=== PATIENT | female | born 1985 | race Caucasian/White ===

== ENCOUNTER → 2019-04-27 17:09 | Outpatient (CLI) | payer OTHER, SELFPAY ==
[2019-05-04 13:14] LABS: HPV APTIMA, High Risk Negative (Negative)
== END ==
PROVIDERS: Referring Provider Obstetrics & Gynecology; Visit Provider Obstetrics & Gynecology
DX: Z12.4 Encounter for screening for malignant neoplasm of cervix (principal)
CPT/HCPCS: 87624; 88175; G0145

== ENCOUNTER 2024-04-21 12:00 | Emergency (ER) | payer OTHER, SELFPAY ==
[2024-04-21 12:01] VITALS: BP 128/83; PULSE 72; RESP 16; TEMP 36.6; O2SAT 100; BMI 27.1
--- NOTE | 2024-04-21 12:13 | VDLE_ITS ---
Reason For Study: Left leg pain Procedure LEFT This is a venous duplex using B-mode, color CFV is compressible, spontaneous, phasic, flow and spectral Doppler. competent, and demonstrates normal Exam performed portable in ED. augmentation. A preliminary report was called and/or faxed FV is compressible, spontaneous, phasic, to Katina LUCIO. competent and demonstrates normal augmentation. POP V is compressible, spontaneous, phasic, competent and demonstrates normal augmentation. T/P Trunk is compressible. PTV is compressible. LT PerV is compressible. Acute superficial vein thrombosis is noted in the left GSV distal thigh. It is dilated and NONCOMPRESSIBLE. Remainder of GSV is comressible. VL/Venous Duplex US, Unilateral Interpretation Summary Deep veins of the left lower extremity are patent and compressible segmentally. There is no evidence of left lower extremity deep vein thrombosis. Valvular competence appears intac t within the proximal deep venous system on the left . Acute superficial thrombophlebitis is noted in the left great saphenous vein in the distal thigh. The remainder of the left great saphenous v ein is patent and compressible. Ordering Physician: Song Schultz Performed By: Diana Mendoza RVT
--- NOTE | 2024-04-21 12:14 | EX.ED.DYSGE1 ---
HPI <DAYANA Muro - Last Filed: 04/21/24 13:34> History of Present Illness Chief Complaint: Lower Extremity Injury Narrative Narrative: 39-year-old female with history of breast cancer who received 1 treatment of chemotherapy on April 10, 2024, presents to the [facility] part with left thigh pain that has been ongoing for 24 hours. Patient is concerned of the blood clot secondary to being on chemotherapy. Patient denies any chest pain or shortness of breath. Patient denies any car rides, recent surgeries. Last chemotherapy was April 10. [facility] <DAYANA Muro - Last Filed: 04/21/24 13:34> [facility] Medical History (Updated 04/21/24 @ 13:34 by DAYANA Muro) Breast cancer Home Medications ?Medication ?Instructions ?Recorded ?Last Taken ?Type vits no.130-ferrous fum 1 ea PO DAILY 05/10/17 05/14/17 History 27 mg iron-folic acid 800 mcg tablet ( Vitamin) ibuprofen 800 mg tablet 800 mg PO TID PRN PRN pain or 05/18/17 Unknown Rx cramping #30 tabs oxycodone 5 mg tablet 5 - 10 mg (1 - 2 x 5 mg) PO Q4H 05/18/17 Unknown Rx PRN PRN Mod-Severe Pain (4-10/10) #28 tabs Allergy/AdvReac Type Severity Reaction Status Date / Time No Known Allergies Allergy Verified 04/21/24 12:18 Social History Smoking Status: Never smoker ROS <DAYANA Muro - Last Filed: 04/21/24 13:34> ROS ED ROS Narrative Constitutional: Negative for fever, chills, weight loss, weakness Eyes: Negative for vision loss, vision change, double vision ENT: Negative for any sore throat, ear pain, congestion Cardiovascular: Negative for any chest pain, tightness, palpitations Respiratory: Negative for any cough, sputum production, hemoptysis, dyspnea, dyspnea on exertion, orthopnea Gastrointestinal: Negative for any abdominal pain, nausea, vomiting, diarrhea, constipation, blood in stool, blood in vomit : Negative for any urinary frequency, dysuria, retention, blood in urine Muscle skeletal: Negative for any neck pain, back pain. Pain to the left medial thigh Neurological: Negative for any headache, syncope, dizziness Skin: Negative for any rashes, itching, abrasions, lacerations Psychiatric: Negative for any depression, anxiety, stress, suicidal ideation, homicidal ideation Hematologic: Negative for any excessive bruising, easy bleeding EXAM <DAYANA Muro - Last Filed: 04/21/24 13:34> Physical Exam Narrative Exam Narrative: Vital signs reviewed. HEET: Head normocephalic atraumatic, TMs clear bilaterally. Posterior pharynx is clear, moist mucous membranes. Nares clear bilaterally. Neck: Supple with no lymphadenopathy or tenderness. No signs of meningismus. Cardiac: Regular rate and rhythm no murmurs gallops or rubs, equal peripheral pulses bilaterally. Respiratory: Lungs clear to auscultation bilaterally. No chest tenderness. Abdomen: Soft, nontender, nondistended. No abdominal bruit or pulsatile masses. No hepatosplenomegaly Extremities: No lower leg edema. +2 pedal pulses bilaterally. Patient does have an area of pain to the left medial thigh. This is painful to the touch. There is a slight lump. There is no evidence of cellulitis or abscess. Neuro: Cranial nerves II through XII intact, no focal neurological deficits. Skin: Clean dry and intact with no rash, purpura, petechiae, vesicles or pustules. Backs/flank: No CVA tenderness, no midline spinal tenderness, no deformity. Psych: Normal mood and affect. No SI, HI or acute psychosis. Const Vital Signs: 04/21/24 12:01 04/21/24 14:10 Temperature 97.9 F 98 F Temperature Source Temporal Pulse Rate 72 74 Respiratory Rate 16 16 Blood Pressure 128/83 H 138/68 H Blood Pressure Mean 98 91 Pulse Ox 100 97 Oxygen Delivery Method Room Air Positive well nourished and well developed General Appearance ED: well developed <Shayan Garland MD - Last Filed: 04/21/24 16:46> Physical Exam Const Vital Signs: 04/21/24 12:01 04/21/24 14:10 Temperature 97.9 F 98 F Temperature Source Temporal Pulse Rate 72 74 Respiratory Rate 16 16 Blood Pressure 128/83 H 138/68 H Blood Pressure Mean 98 91 Pulse Ox 100 97 Oxygen Delivery Method Room Air MDM <DAYANA Muro - Last Filed: 04/21/24 13:34> MDM Treatment and Re-Evaluation :: Differential diagnosis includes however is not limited to: Muscle strain, DVT, superficial thrombophlebitis, abscess Patient appears generally well, vital signs are stable, patient is nontoxic-appearing. Presenting to the emergency department with complaints of pain to the left medial thigh, patient is on chemotherapy for breast cancer. Patient will receive a venous duplex of the left lower extremity. All radiologic examinations were read, reviewed by the emergency department attending. From these reads, a plan of care will be put in place. Patient's venous duplex noted acute superficial vein thrombosis is noted in the left GSV, distal thigh. Is dilated and noncompressible. Remainder of the GSV is compressible. Secondary this to being superficial thrombus, patient will follow-up with the oncologist see if she can take aspirin. She will be given Dr. Marinelli for follow-up. She will use warm compresses. Instructed return for any worsening symptoms. <Shayan Garland MD - Last Filed: 04/21/24 16:46> [facility] Narrative Medical decision making narrative: Dr. Garland: I have personally performed a face to face assessment of the patient and have reviewed the JAVAD Note. I performed a substantive portion of the visit including all aspects of the following. My montaño findings include: History is left inner thigh swollen, tender to touch, red. Concern for DVT. No chest pain or shortness of breath. Exam is afebrile. Vital signs noted. Mild tenderness palpation left distal inner thigh with mild erythema. Medical Decision Making: Concern is for DVT versus superficial thrombophlebitis. DVT study obtained and preliminary report reviewed. There is superficial thrombosis near the greater saphenous vein, but no evidence of DVT. I do not feel that any laboratory work or other imaging is indicated. She was discharged home in stable condition. Other additions or changes: Vascular surgery as an outpatient. Can take aspirin, but will check with oncology if she is able to take salicylates. Declined stronger pain medications. History & Record Review Discussion w/independent historian: Patient and Family Discharge Plan Triage Chief Complaint: Lower Extremity Injury ED Midlevel Provider: Song Schultz ED Provider: Shayan Garland Dx/Rx/DC Orders Clinical Impression: Acute superficial venous thrombosis of left lower extremity Instructions: Low-Salt Choices, ED Thrombophlebitis, Superficial Prescriptions: No Action vit no.[id number] [ Vitamin] 1 EACH tablet 1 ea PO DAILY oxycodone 5 MG tablet 5 - 10 mg PO Q4H PRN PRN (Reason: Mod-Severe Pain (4-1010)) Qty: 28 0RF ibuprofen 800 MG tablet 800 mg PO TID PRN PRN (Reason: pain or cramping) Qty: 30 1RF Primary Care Provider: Care Physician,No Primary Referrals: Jasvir Marinelli MD [Med Staff - Active Staff] - Care Physician,No Primary [Primary Care Provider] - Activity Restrictions/Additional Instructions: Please use a warm compress. Speak with your oncologist regarding aspirin. Return for any worsening symptoms. Print Language: Turkmen Disposition Disposition: Home, Self Care Discharge Date/Time: 04/21/24 14:10
[2024-04-21 14:10] VITALS: BP 138/68; PULSE 74; RESP 16; TEMP 36.6; O2SAT 97
== END 2024-04-21 14:10 | disposition home or self-care (01) ==
PROVIDERS: Emergency Provider Emergency Medicine; Visit Provider Emergency Medicine
DX: I82.812 Embolism and thrombosis of superficial veins of left lower extremity (principal)
CPT/HCPCS: 93971; 99282

== ENCOUNTER 2024-05-07 12:42 | Outpatient (CLI) | payer OTHER, SELFPAY ==
[2024-05-07 13:00] VITALS: BP 108/68; PULSE 75; RESP 16; TEMP 36.6; O2SAT 97; BMI 26.9
[2024-05-07] MEDS: 0.9% Normal Saline (1000mL) 1,000 ML 999 ML IV (13:09)
[2024-05-07 14:22] VITALS: BP 108/56; PULSE 77; RESP 16; TEMP 36.9; O2SAT 98
== END 2024-05-07 23:59 | disposition home or self-care (01) ==
DX: C50.911 Malignant neoplasm of unspecified site of right female breast (principal)
CPT/HCPCS: 96360; A4216

== ENCOUNTER 2024-05-28 13:41 | Outpatient (CLI) | payer OTHER, SELFPAY ==
[2024-05-28] MEDS: 0.9% Normal Saline (1000mL) 1,000 ML 999 ML IV (13:49)
[2024-05-28 13:53] VITALS: BP 114/76; PULSE 80; RESP 16; TEMP 36.6; O2SAT 97; BMI 27.4
[2024-05-28 14:55] VITALS: BP 111/72; PULSE 86; RESP 14; TEMP 36.8; O2SAT 98
== END 2024-05-28 23:59 | disposition home or self-care (01) ==
LOC: MEDOUTP 13:41
DX: C50.911 Malignant neoplasm of unspecified site of right female breast (principal)
CPT/HCPCS: 96360; A4216

== ENCOUNTER 2024-06-19 09:19 | Outpatient (CLI) | payer OTHER, SELFPAY ==
[2024-06-19 09:45] VITALS: BP 124/74; PULSE 68; RESP 16; TEMP 35.9; O2SAT 100
[2024-06-19] MEDS: 0.9% Normal Saline (1000mL) 1,000 ML 999 ML IV (09:53)
[2024-06-19 11:07] VITALS: BP 112/62; PULSE 78; RESP 16
== END 2024-06-19 23:59 | disposition home or self-care (01) ==
LOC: MEDOUTP 09:19
DX: C50.911 Malignant neoplasm of unspecified site of right female breast (principal)
CPT/HCPCS: 96360; A4216

== ENCOUNTER → 2024-06-20 | Outpatient (CLI) | payer SELFPAY, OTHER ==
--- NOTE | 2024-06-20 13:49 | ECHOD_ITS ---
Reason For Study Reason For Study: Chest pain, Breast CA Procedure This was a 2D Doppler, Color Flow transthoracic echocardiogram. Myocardial strain analysis was performed in this exam to aid in the assessment of cardiac function. Exam performed in department. Left Ventricle Normal LV size. The estimated ejection fraction is 65 %. The global longitudinal strain = -21.3 % (normal). Normal diastololic function. No regional wall motion abnormalities noted. Right Ventricle Normal RV size. Normal systolic function. Atria The left and right atria are normal. Mitral Valve The mitral valve is structurally normal. No prolapse or stenosis seen. Trivial mitral valve insufficiency. Tricuspid Valve Normal tricuspid valve. Mild tricuspid valve insufficiency. Pulmonary artery systolic pressure is 31 mmHg. Aortic Valve Trisinus/trileaflet aortic valve. Pulmonic Valve Normal pulmonic valve. Trivial pulmonic valve insufficiency. Great Vessels Normal sized aortic root. Pericardium/Pleural No pericardial effusion. MMode/2D Measurements & Calculations LVIDd: 4.4 cm IVSd: 1.1 cm Ao root diam: 2.8 cm LVIDs: 2.9 cm LVPWd: 1.1 cm RVDd: 3.6 cm FS: 35.3 % LAV(MOD-bp): 41.4 ml LVAd ap4: 29.5 cm2 LVAd ap2: 29.3 cm2 LAV(MOD-bp) Indexed: 22.5 ml/m2 LVLd ap4: 8.3 cm LVLd ap2: 8.4 cm LAV(MOD-sp2): 44.5 ml EDV(MOD-sp4): 86.8 ml EDV(MOD-sp2): 87.1 ml LAV(MOD-sp4): 36.8 ml EDV(sp4-el): 88.6 ml EDV(sp2-el): 86.5 ml LVAs ap4: 16.1 cm2 LVAs ap2: 15.7 cm2 LVLs ap4: 6.9 cm LVLs ap2: 7.4 cm ESV(MOD-sp4): 32.4 ml ESV(MOD-sp2): 29.0 ml ESV(sp4-el): 32.0 ml ESV(sp2-el): 28.3 ml EF(MOD-sp4): 62.6 % EF(MOD-sp2): 66.7 % EF(sp4-el): 63.9 % SV(MOD-sp4): 54.3 ml SV(MOD-sp2): 58.1 ml SV(sp4-el): 56.6 ml SI(MOD-sp4): 29.5 ml/m2 SI(MOD-sp2): 31.5 ml/m2 LA A4 area: 14.7 cm2 LA dimension(2D): 3.3 cm RA A4 area: 13.3 cm2 TAPSE: 2.9 cm Time Measurements MV dec time: 0.18 sec Doppler Measurements & Calculations MV E max eduard: 111.8 cm/sec Lat Peak E' Eduard: 16.6 cm/sec Med Peak E' Eduard: 14.6 cm/sec MV A max eduard: 74.5 cm/sec E/E' lat: 6.7 E/E' med: 7.6 MV E/A: 1.5 Ao V2 max: 155.3 cm/sec PA V2 max: 99.3 cm/sec MV dec slope: 605.9 cm/sec2 Ao max P.6 mmHg Ao V2 mean: 106.3 cm/sec Ao mean P.2 mmHg Ao V2 VTI: 34.0 cm TR max eduard: 266.6 cm/sec TR max P.4 mmHg ECHO/Echo Complete Interpretation Summary The estimated ejection fraction is 65 %. The global longitudinal strain = -21.3 % (normal). Structually normal valves. Ordering Physician: RAFIA MUSTAFA Referring Physician: Leslie Fowler Performed By: Lidia Stephen RDCS
== END | disposition home or self-care (01) ==
PROVIDERS: PCP Nurse Practitioner
DX: Z13.6 Encounter for screening for cardiovascular disorders (principal); R07.9 Chest pain, unspecified
CPT/HCPCS: 93306

== ENCOUNTER 2024-07-09 12:49 | Outpatient (CLI) | payer OTHER, SELFPAY ==
[2024-07-09] MEDS: 0.9% Normal Saline (1000mL) 1,000 ML 1000 ML IV (13:16)
[2024-07-09 13:21] VITALS: BP 120/68; PULSE 81; RESP 14; TEMP 36.1; O2SAT 98
[2024-07-09 14:27] VITALS: BP 114/69; PULSE 78; RESP 16; TEMP 36; O2SAT 100
== END 2024-07-09 23:59 | disposition home or self-care (01) ==
LOC: MEDOUTP 12:50
PROVIDERS: PCP Nurse Practitioner
DX: C50.911 Malignant neoplasm of unspecified site of right female breast (principal)
CPT/HCPCS: 96360; A4216

== ENCOUNTER 2024-07-17 21:31 | Emergency (ER) | payer OTHER, SELFPAY ==
[2024-07-17 21:32] VITALS: BP 130/80; PULSE 76; RESP 15; TEMP 35.9; O2SAT 98; BMI 30.2
--- NOTE | 2024-07-17 22:21 | ED.VIS.DENTA ---
HPI History of Present Illness Chief Complaint: Dental Informant: patient Narrative Narrative: Left mandibular toothache that started earlier today and has developed into some facial swelling in the area, concerned about a dental abscess. No fevers or chills. No drainage or bleeding intraorally. She is on chemotherapy for breast cancer right now. [facility] Medical History Breast cancer Home Medications ?Medication ?Instructions ?Recorded ?Last Taken ?Type ibuprofen 800 mg tablet 800 mg PO TID PRN PRN pain or 05/18/17 Unknown Rx cramping #30 tabs oxycodone 5 mg tablet 5 - 10 mg (1 - 2 x 5 mg) PO Q4H 05/18/17 Unknown Rx PRN PRN Mod-Severe Pain (4-10/10) #28 tabs dexamethasone 4 mg tablet 4 mg 05/07/24 Unknown History loperamide 2 mg capsule 4 mg PO 05/07/24 Unknown History prochlorperazine maleate 10 mg 10 mg PO Q6H PRN PRN 05/07/24 Unknown History tablet nausea/vomiting amoxicillin 500 mg tablet 500 mg PO TID #30 tabs 07/17/24 Unknown Rx Allergy/AdvReac Type Severity Reaction Status Date / Time No Known Allergies Allergy Verified 07/17/24 21:32 Family History no significant family his Social History Smoking Status: Never smoker ROS ROS ED Constitutional Constitutional ED: Denies chills or fever(s) Eyes Eyes: Denies change in vision or double vision ENT ENT ED: Reports dental pain; Denies sinus pain or throat swelling Cardiovascular Cardiovascular: Denies chest pain or palpitations Respiratory/Chest Respiratory/Chest: Denies cough or dyspnea Integumentary Denies abscess or rash Neurologic Neurologic: Denies headache(s), paresthesias or weakness EXAM Physical Exam Const Vital Signs: 07/17/24 21:32 Temperature 96.7 F L Temperature Source Temporal Pulse Rate 76 Respiratory Rate 15 Blood Pressure 130/80 H Blood Pressure Mean 96 Pulse Ox 98 Oxygen Delivery Method Room Air Positive well nourished and well developed General Appearance ED: well developed and NAD HEENT HEENT Narrative: No trismus. She has tenderness in the soft tissues lateral to tooth #18, tooth #17 does not appear to be present or erupted. She does not have any tenderness to tooth percussion in this area. There is some obvious asymmetry/swelling in the left angle of the jaw, consistent with a dental abscess that is swollen and tender but not fluctuant consistent with a drainable collection. It is not in an area consistent with a submandibular salivary gland. The tongue is not elevated, there is no sublingual edema or elevation. Face and Sinus: sinuses nontender Throat: posterior oropharynx normal Eyes PERRL and EOMs intact bilaterally Neck no lymphadenopathy and supple Resp normal respiratory effort Neuro oriented x3 and CN's II-XII intact bilaterally Sensorium / Orientation: alert Gait (Neuro): normal gait Psych mental status grossly normal and thought process normal Skin no rashes or lesions noted and no wounds MDM MDM MDM Narrative Medical decision making narrative: Consistent with an early dental abscess, I do not think putting a needle in this is going to be helpful or beneficial at this time. Reasonable to start her on amoxicillin. I offered analgesics she declines any of them here or prescription, even ibuprofen or Tylenol. Discharge Plan Triage Chief Complaint: Dental ED Provider: David Doshi Dx/Rx/DC Orders Clinical Impression: Dental abscess Instructions: Dental Abscess Prescriptions: New amoxicillin 500 mg tablet 500 mg PO TID Qty: 30 0RF No Action oxycodone 5 MG tablet 5 - 10 mg PO Q4H PRN PRN (Reason: Mod-Severe Pain (4-1010)) Qty: 28 0RF ibuprofen 800 MG tablet 800 mg PO TID PRN PRN (Reason: pain or cramping) Qty: 30 1RF loperamide 2 mg capsule 4 mg PO Patient Comments: PLEASE SEE ATTACHED FOR DETAILED DIRECTIONS prochlorperazine maleate 10 mg tablet 10 mg PO Q6H PRN PRN (Reason: nausea/vomiting) dexamethasone 4 mg tablet 4 mg Patient Comments: PLEASE SEE ATTACHED FOR DETAILED DIRECTIONS Primary Care Provider: Leslie Fowler NP Referrals: Dentist,Your [STAFF PHYSICIAN] - As soon as possible Print Language: Lithuanian Disposition Disposition: Home, Self Care
[2024-07-17] MEDS: AMOXICILLIN 500 MG CAPSULE PO (22:25)
[2024-07-17 22:37] VITALS: BP 130/80; PULSE 76; RESP 16; TEMP 35.9; O2SAT 98
== END 2024-07-17 22:41 | disposition home or self-care (01) ==
PROVIDERS: Emergency Provider Emergency Medicine; PCP Nurse Practitioner; Visit Provider Emergency Medicine
DX: K04.7 Periapical abscess without sinus (principal)
CPT/HCPCS: 99282

== ENCOUNTER 2024-07-27 10:18 | Outpatient (CLI) | payer OTHER, SELFPAY ==
[2024-07-27] MEDS: 0.9% Normal Saline (1000mL) 1,000 ML 999 ML IV (10:36)
[2024-07-27 10:38] VITALS: BP 112/56; PULSE 81; RESP 16; TEMP 36.2; O2SAT 99
[2024-07-27 11:51] VITALS: BP 117/68; PULSE 83; RESP 16; O2SAT 99
== END 2024-07-27 23:59 | disposition home or self-care (01) ==
LOC: MEDOUTP 10:18
PROVIDERS: PCP Nurse Practitioner
DX: C50.911 Malignant neoplasm of unspecified site of right female breast (principal)
CPT/HCPCS: 96360; A4216

== ENCOUNTER → 2024-08-31 | Outpatient (CLI) | payer SELFPAY, OTHER ==
--- NOTE | 2024-08-31 06:57 | ECHOD_ITS ---
Reason For Study Reason For Study: BREAST CANCER W/CHEMO Procedure This was a 2D Doppler, Color Flow transthoracic echocardiogram. Myocardial strain analysis was performed in this exam to aid in the assessment of cardiac function. Exam performed in department. Left Ventricle Normal LV size. Left ventricular systolic function is normal. The left ventricular ejection fraction is 65 %. No regional wall motion abnormalities noted. Right Ventricle Normal RV size. Normal systolic function. Atria Normal left atrium. Normal right atrium. Mitral Valve Normal mitral valve. Tricuspid Valve Normal tricuspid valve. Mild (1+) tricuspid valve insufficiency. Pulmonary artery systolic pressure is 25 mmHg. Aortic Valve Trisinus/trileaflet aortic valve. Pulmonic Valve Normal pulmonic valve. Great Vessels Normal aortic root. The pulmonary artery is normal size. Inferior vena cava collapse with respiration. Pericardium/Pleural No pericardial effusion. MMode/2D Measurements & Calculations LVIDd: 4.7 cm IVSd: 0.85 cm Ao root diam: 3.0 cm LVIDs: 3.2 cm LVPWd: 0.91 cm RVDd: 3.2 cm FS: 33.0 % LAV(MOD-bp): 45.1 ml LVAd ap4: 29.6 cm2 LVAd ap2: 23.8 cm2 LAV(MOD-bp) Indexed: 24.5 ml/m2 LVLd ap4: 8.0 cm LVLd ap2: 7.5 cm LAV(MOD-sp2): 41.2 ml EDV(MOD-sp4): 90.9 ml EDV(MOD-sp2): 67.9 ml LAV(MOD-sp4): 40.6 ml EDV(sp4-el): 92.7 ml EDV(sp2-el): 64.0 ml LVAs ap4: 16.3 cm2 LVAs ap2: 12.5 cm2 LVLs ap4: 6.6 cm LVLs ap2: 5.9 cm ESV(MOD-sp4): 35.2 ml ESV(MOD-sp2): 24.7 ml ESV(sp4-el): 34.1 ml ESV(sp2-el): 22.7 ml EF(MOD-sp4): 61.3 % EF(MOD-sp2): 63.6 % EF(sp4-el): 63.2 % SV(MOD-sp4): 55.7 ml SV(MOD-sp2): 43.2 ml SV(sp4-el): 58.6 ml SI(MOD-sp4): 30.2 ml/m2 SI(MOD-sp2): 23.4 ml/m2 LA A4 area: 14.1 cm2 LA dimension(2D): 3.3 cm RA A4 area: 9.9 cm2 TAPSE: 2.9 cm Time Measurements MV dec time: 0.18 sec Doppler Measurements & Calculations MV E max eduard: 97.9 cm/sec Lat Peak E' Eduard: 12.6 cm/sec Med Peak E' Eduard: 14.6 cm/sec MV A max eduard: 52.8 cm/sec E/E' lat: 7.8 E/E' med: 6.7 MV E/A: 1.9 MV V2 max: 106.1 cm/sec MV P1/2t max eduard: 110.7 cm/sec Ao V2 max: 126.6 cm/sec MV max P.5 mmHg MV P1/2t: 66.1 msec Ao max P.4 mmHg MV V2 mean: 40.8 cm/sec Ao V2 mean: 91.1 cm/sec MV mean P.94 mmHg MV dec slope: 490.3 cm/sec2 Ao mean P.7 mmHg MV V2 VTI: 28.8 cm MVA(P1/2t): 3.3 cm2 Ao V2 VTI: 31.5 cm AV (velocity ratio): 0.73 LV V1 max: 98.1 cm/sec PA V2 max: 99.3 cm/sec TR max eduard: 235.2 cm/sec LV V1 max P.8 mmHg PA V2 mean: 68.4 cm/sec TR max P.1 mmHg LV V1 mean P.2 mmHg LV V1 mean: 69.2 cm/sec LV V1 VTI: 22.9 cm ECHO/Echo Complete Interpretation Summary Normal LV size. Left ventricular systolic function is normal. The left ventricular ejection fraction is 65 %. Structurally normal valves. The global longitudinal strain is normal. The globa l longitudinal strain = -20.5 % (normal). Ordering Physician: Umsan Kingsley Referring Physician: Leslie Fowler Performed By: Basilia Pedroza, ENZO, RVT
== END | disposition home or self-care (01) ==
LOC: CVS 06:55
PROVIDERS: PCP Nurse Practitioner
DX: C50.911 Malignant neoplasm of unspecified site of right female breast (principal)
CPT/HCPCS: 93306

== ENCOUNTER → 2024-12-04 | Outpatient (CLI) | payer SELFPAY, OTHER ==
--- NOTE | 2024-12-04 14:07 | ECHOD_ITS ---
Reason For Study Reason For Study: Chemotherapy Procedure This was a 2D Doppler, Color Flow transthoracic echocardiogram. Myocardial strain analysis was performed in this exam to aid in the assessment of cardiac function. Exam performed in department. Left Ventricle Normal LV size. The global longitudinal strain = -22.0 % (normal). The left ventricular ejection fraction is 60 %. No regional wall motion abnormalities noted. Right Ventricle Normal RV size. Normal systolic function. Atria Normal left atrium. Normal right atrium. Mitral Valve Normal mitral valve. Tricuspid Valve Normal tricuspid valve. Mild (1+) tricuspid valve insufficiency. Pulmonary artery systolic pressure is 24 mmHg. Aortic Valve Trisinus/trileaflet aortic valve. Pulmonic Valve Normal pulmonic valve. Great Vessels Normal aortic root. The pulmonary artery is normal size. Inferior vena cava collapse with respiration. Pericardium/Pleural No pericardial effusion. MMode/2D Measurements & Calculations LVIDd: 4.5 cm IVSd: 0.97 cm Ao root diam: 2.8 cm LVIDs: 2.9 cm LVPWd: 0.78 cm RVDd: 4.1 cm FS: 35.5 % LAV(MOD-bp): 42.9 ml LVAd ap4: 30.6 cm2 SV(MOD-sp4): 56.6 ml LAV(MOD-bp) Indexed: 22.7 ml/m2 LVLd ap4: 8.2 cm SI(MOD-sp4): 30.0 ml/m2 LAV(MOD-sp2): 46.6 ml EDV(MOD-sp4): 92.8 ml LAV(MOD-sp4): 38.1 ml EDV(sp4-el): 96.4 ml LVAs ap4: 17.3 cm2 LVLs ap4: 6.8 cm ESV(MOD-sp4): 36.2 ml ESV(sp4-el): 37.2 ml EF(MOD-sp4): 61.0 % EF(sp4-el): 61.4 % SV(sp4-el): 59.2 ml LA A4 area: 14.7 cm2 LA dimension(2D): 3.4 cm RA A4 area: 13.1 cm2 TAPSE: 2.8 cm Time Measurements MV dec time: 0.18 sec Doppler Measurements & Calculations MV E max eduard: 109.0 cm/sec Lat Peak E' Eduard: 19.0 cm/sec Med Peak E' Eduard: 14.1 cm/sec MV A max eduard: 74.3 cm/sec E/E' lat: 5.7 E/E' med: 7.7 MV E/A: 1.5 MV V2 max: 144.0 cm/sec MV P1/2t max eduard: 145.1 cm/sec Ao V2 max: 157.6 cm/sec MV max P.3 mmHg MV P1/2t: 69.7 msec Ao max P.9 mmHg MV V2 mean: 68.9 cm/sec Ao V2 mean: 110.6 cm/sec MV mean P.4 mmHg MV dec slope: 609.5 cm/sec2 Ao mean P.6 mmHg MV V2 VTI: 34.5 cm MVA(P1/2t): 3.2 cm2 Ao V2 VTI: 35.4 cm AV (velocity ratio): 0.78 LV V1 max: 126.5 cm/sec PA V2 max: 118.7 cm/sec TR max eduard: 228.1 cm/sec LV V1 max P.4 mmHg PA V2 mean: 82.0 cm/sec TR max P.8 mmHg LV V1 mean P.7 mmHg LV V1 mean: 90.9 cm/sec LV V1 VTI: 27.8 cm ECHO/Echo Complete Interpretation Summary Normal LV size. The global longitudinal strain = -22.0 % (normal). The left ventricular ejection fraction is 60 %. Pulmonary artery systolic pressure is 24 mmHg. Ordering Physician: RAIFA MUSTAFA Referring Physician: RAFIA MUSTAFA Performed By: Neymar Castellano RCS
== END | disposition home or self-care (01) ==
LOC: CVS 14:07
PROVIDERS: PCP Nurse Practitioner Family
DX: Z13.6 Encounter for screening for cardiovascular disorders (principal)
CPT/HCPCS: 93306